=== PATIENT | female | born 1955 ===

== ENCOUNTER 2025-11-01 15:11 | Emergency (ER) | payer OTHER ==
[~2025-11-01] VITALS: Ht 157.5 cm; Wt 86.2 kg
[~2025-11-01 15:11] MED LIST: ATARAX10 MG; CALAN80 MG; CLONAZEPAM2 MG; LASIX40 MG; NEURONTIN800 MG; PREDNISOLONE5 MG; TUSSIONEX PENNKI5 ML
[2025-11-01] MEDS ORDERED: MEGESTROL ACETA20 MG (15:31)
[2025-11-01] MEDS ORDERED: COZAAR25 MG (15:31)
[2025-11-01] MEDS ORDERED: MIRABEGRON ER25 MG (15:32)
[2025-11-01] MEDS ORDERED: ZYLOPRIM100 M1 (15:32)
[2025-11-01] MEDS ORDERED: PROTONIX40 MG (15:32)
[2025-11-01] MEDS ORDERED: SEROQUEL50 MG (15:32)
[2025-11-01] MEDS ORDERED: ACETAMINOPHEN 500 MG GEL..CAP PO ONE ×2 (18:00→19:11)
[2025-11-01] MEDS ORDERED: FAMOTIDINE/PF 20 MG in 0.9 % SODIUM CHLORIDE 8 ML IV PUSH ONE (18:15)
[2025-11-01] MEDS ORDERED: METHYLPREDNISOLONE SOD SUCC 125 MG VIAL IV ONE (18:15)
[2025-11-01] MEDS ORDERED: IPRATROPIUM BROMIDE 0.5 MG/2.5 ML AMPUL.NEB IH SCH ×2 (18:15→19:15)
[2025-11-01] MEDS ORDERED: LEVALBUTEROL HCL 1.25 MG/3 ML SOLUTION IH SCH ×2 (18:15→19:15)
[2025-11-01] MEDS ORDERED: METHYLPREDNISOLONE SOD SUCC 125 MG VIAL ONE (19:12)
[2025-11-01] MEDS ORDERED: FAMOTIDINE/PF 20 MG/2 ML VIAL ONE (19:12)
[2025-11-01 19:20] LABS: BASO % 0.1 % (0.1-1.2); EOS # 0.01 (0.04-0.54); EOS % 0.1 % (0.7-7.0); LYMPH # 0.53 (1.18-3.74); LYMPH % 6.9 % (19.3-53.1); MEAN PLATELET VOLUME 10.30 fl (9.4-12.4); MONO # 0.07 (0.24-0.82); MONO % 0.9 % (4.7-12.5); NEUT # 6.97 (1.56-6.13); NEUT % 91.5 % (34.0-71.1); RED CELL DISTRIBUTION WIDTH 15.0 % (11.6-14.4)
[2025-11-01 19:20] LABS: URINE APPEARANCE Clear; URINE BILIRRUBIN Negative (NEGATIVE); URINE BLOOD Negative; URINE COLOR Yellow; URINE GLUCOSE Negative (NEGATIVE); URINE KETONE Negative (NEGATIVE); URINE LEUKOCYTE Negative; URINE NITRATE Negative; URINE PROTEIN 30 (NEGATIVE); URINE UROBILINOGEN 0.2 E.U./dl
[2025-11-01 19:24] LABS: URINE BACTERIA 16.0 uL (0.0-1933); URINE WBC 3.0 uL (0.0-23.2)
[2025-11-01 19:26] LABS: ERYTHROCYTE SEDIMENTATION RATE 64 mm/hr (0-30)
[2025-11-01 19:38] LABS: URINE CAST 0.28 uL (0.0-1.40); URINE EPITHELIAL CELLS 1.0 uL (0.0-38.8); URINE RBC 1.2 uL (0.0-20.8)
[2025-11-01 19:42] LABS: INR 1.03
[2025-11-01 19:48] LABS: ALT/SGPT 23.0 U/L (12-78); AST/SGOT 30.0 U/L (15-37); BILIRUBIN TOTAL 0.56 mg/dL (0.3-1.2); BUN CREA RATIO 17.0 (7.0-25.0); CREATININE SERUM 0.92 mg/dL (0.55-1.02); GFR 60.01; GLOBULINA 3.8 G/DL (2.4-3.5); GLUCOSE FASTING 144.0 mg/dL (65-100); OSMOLALITY SERUM 283.0 MOSM/KG (275-295)
[2025-11-01] MEDS ORDERED: LEVALBUTEROL HCL 1.25 MG/3 ML SOLUTION IH ONE (22:01)
[2025-11-01] MEDS ORDERED: IPRATROPIUM BROMIDE 0.5 MG/2.5 ML AMPUL.NEB IH ONE (22:02)
[2025-11-01 23:21] LABS: COVID-19 AG NEGATIVE (NEGATIVE)
== END 2025-11-02 01:39 | disposition home or self-care (01) ==
LOC: ER 15:11
PROVIDERS: General Practice
DX: J06.9 Acute upper respiratory infection, unspecified (principal); R06.02 Shortness of breath; Z74.01 Bed confinement status; I10 Essential (primary) hypertension; G30.8 Other Alzheimer's disease; F02.80 Dementia in other diseases classified elsewhere, unspecified severity, without behavioral disturbance, psychotic disturbance, mood disturbance, and anxiety; I50.9 Heart failure, unspecified; E66.01 Morbid (severe) obesity due to excess calories; Z88.6 Allergy status to analgesic agent; Z20.822 Contact with and (suspected) exposure to COVID-19